=== PATIENT | female | born 1955 | race Caucasian/White ===

== ENCOUNTER 2016-10-11 20:54 | Emergency (ER) | payer BC ==
[~2016-10-11] VITALS: Ht 162.6 cm; Wt 105.3 kg
[~2016-10-11 20:54] MED LIST: ACET1TAB10 PO; ALBU18HF PO; BACL-19 PO; BUDE10.2 PO; HYDR-3138 PO; MELO-190 PO; MIRALAX PO; MONT10TA9 PO; OMEP40CA6 PO; ONDA4TAB7 PO; S-AD400T3 PO; TELM40TA PO; TRIA1CAP3 PO; VALA1000 PO; [UNRECOGNIZED DRUG - CODE] PO
[2016-10-11 20:55] VITALS: BP 185/108
== END 2016-10-11 22:23 | disposition home or self-care (01) ==
LOC: ED 22:07
DX: S61.531A Puncture wound without foreign body of right wrist, initial encounter (principal); J44.9 Chronic obstructive pulmonary disease, unspecified; I10 Essential (primary) hypertension; W54.0XXA Bitten by dog, initial encounter; Y93.89 Activity, other specified; Y99.8 Other external cause status; Y92.89 Other specified places as the place of occurrence of the external cause
CPT/HCPCS: 99284

== ENCOUNTER 2016-10-13 11:56 | Emergency (ER) | payer BC ==
[~2016-10-13] VITALS: Ht 162.6 cm; Wt 105.8 kg
[2016-10-13 11:57] VITALS: BP 171/88
[2016-10-13] MEDS ORDERED: BACITRACIN ZINC OINT 500U/GM, 0.9 GM ONE (12:27)
[2016-10-13] MEDS ORDERED: AMOX1TAB64 PO (12:44)
== END 2016-10-13 13:00 | disposition home or self-care (01) ==
LOC: ED 12:09
DX: S51.851D Open bite of right forearm, subsequent encounter (principal); J44.9 Chronic obstructive pulmonary disease, unspecified; I10 Essential (primary) hypertension; Z88.8 Allergy status to other drugs, medicaments and biological substances
CPT/HCPCS: 29125

== ENCOUNTER 2016-10-15 10:34 | Emergency (ER) | payer BC ==
[~2016-10-15] VITALS: Ht 162.6 cm; Wt 105.0 kg
[~2016-10-15 10:34] MED LIST changes: +AMOX1TAB64 PO
[2016-10-15 10:45] VITALS: BP 164/96
== END 2016-10-15 11:20 | disposition home or self-care (01) ==
LOC: ED 11:16
DX: S41.151D Open bite of right upper arm, subsequent encounter (principal); I10 Essential (primary) hypertension; J44.9 Chronic obstructive pulmonary disease, unspecified; W54.0XXA Bitten by dog, initial encounter; Y93.89 Activity, other specified; Y92.89 Other specified places as the place of occurrence of the external cause; Y99.8 Other external cause status
CPT/HCPCS: 99281

== ENCOUNTER → 2016-12-26 | Outpatient (CLI) | payer BC | END | disposition home or self-care (01) | LOC: CFH 12:01 | PROVIDERS: ATTEND Registered Nurse | DX: Z02.9 Encounter for administrative examinations, unspecified (principal) ==